=== PATIENT | male | born 1945 | race Caucasian/White ===

== ENCOUNTER → 2017-01-03 | Outpatient (REF) | payer BC | LOC: M SFHCPLAZ 15:45 | PROVIDERS: ATTEND Dermatology | DX: R23.8 Other skin changes (principal) ==

== ENCOUNTER → 2017-02-06 | Outpatient (REF) | payer BC | LOC: M SFHCPLAZ 17:51 | PROVIDERS: ATTEND Dermatology | DX: C41.1 Malignant neoplasm of mandible (principal) ==

== ENCOUNTER → 2018-03-21 | Outpatient (REF) | payer BC | LOC: M SFHCLERA 11:44 | DX: C44.622 Squamous cell carcinoma of skin of right upper limb, including shoulder (principal); D04.62 Carcinoma in situ of skin of left upper limb, including shoulder | CPT/HCPCS: 88305 ==

== ENCOUNTER → 2020-05-18 | Outpatient (REF) | payer BC | LOC: M LAB REF 10:38 | PROVIDERS: ATTEND Dermatology | DX: C44.612 Basal cell carcinoma of skin of right upper limb, including shoulder (principal); D14.0 Benign neoplasm of middle ear, nasal cavity and accessory sinuses ==

== ENCOUNTER → 2020-07-06 | Outpatient (REF) | payer BC, MEDICARE | LOC: M LAB REF 18:32 | PROVIDERS: ATTEND Dermatology | DX: C44.612 Basal cell carcinoma of skin of right upper limb, including shoulder (principal); L57.0 Actinic keratosis ==

== ENCOUNTER → 2020-09-27 | Outpatient (REF) | payer BC, MEDICARE | LOC: M LAB REF 13:51 | PROVIDERS: ATTEND Dermatology | DX: C44.529 Squamous cell carcinoma of skin of other part of trunk (principal) ==

== ENCOUNTER → 2020-11-16 | Outpatient (REF) | payer MEDICARE | LOC: M LAB REF 13:50 | PROVIDERS: ATTEND Dermatology | DX: C44.529 Squamous cell carcinoma of skin of other part of trunk (principal); L90.5 Scar conditions and fibrosis of skin; L82.1 Other seborrheic keratosis ==

== ENCOUNTER → 2021-03-21 | Outpatient (REF) | payer MEDICARE | LOC: M LAB REF 14:13 | PROVIDERS: ATTEND Dermatology | DX: L82.1 Other seborrheic keratosis (principal) ==

== ENCOUNTER → 2021-09-23 | Outpatient (REF) | payer MEDICARE | LOC: M LAB REF 14:09 | PROVIDERS: ATTEND Nurse Practitioner Family | DX: L82.1 Other seborrheic keratosis (principal) ==

== ENCOUNTER → 2022-03-29 | Outpatient (REF) | payer MEDICARE | LOC: M SFHCDERM 14:21 | PROVIDERS: ATTEND Physician Assistant | DX: C44.319 Basal cell carcinoma of skin of other parts of face (principal) ==

== ENCOUNTER → 2024-05-05 | Outpatient (REF) | payer MEDICARE | LOC: M SFHCDERM 17:49 | PROVIDERS: ATTEND Physician Assistant | DX: C44.229 Squamous cell carcinoma of skin of left ear and external auricular canal (principal) ==

== ENCOUNTER → 2024-08-19 | Outpatient (REF) | payer MEDICARE | LOC: M SFHCDERM 08:27 | PROVIDERS: ATTEND Dermatology | DX: C44.219 Basal cell carcinoma of skin of left ear and external auricular canal (principal) ==

== ENCOUNTER → 2024-11-12 | Outpatient (REF) | payer MEDICARE | LOC: M SFHCDERM 17:26 | PROVIDERS: ATTEND Physician Assistant | DX: C44.329 Squamous cell carcinoma of skin of other parts of face (principal); D04.39 Carcinoma in situ of skin of other parts of face ==

== ENCOUNTER → 2025-01-30 | Outpatient (REF) | payer MEDICARE ==
[2025-01-30 14:23] LABS: ALBUMIN 3.9 G/DL (3.2-5.2); BILIRUBIN,TOTAL 0.4 MG/DL (0.3-1.2); CALCIUM LEVEL 9.2 MG/DL (8.3-10.6); CHOLESTEROL RISK RATIO 2.89 (<5); CREATININE FOR GFR 1.03 MG/DL (0.70-1.30); GLOMERULAR FILTRATION RATE 73.9 (>42); HDL CHOLESTEROL 76.6 MG/DL (>40); LDL CHOLESTEROL 113.8 MG/DL (<100); NON-HDL-C 145.4 MG/DL; POTASSIUM SERUM 5.4 MMOL/L (3.5-5.1); TOTAL PROTEIN 7.8 G/DL (5.7-8.2)
== END ==
LOC: M LABWUC 13:15
PROVIDERS: ATTEND Internal Medicine
DX: E78.5 Hyperlipidemia, unspecified (principal)